=== PATIENT | male | born 2000 | race Two or more races ===

== ENCOUNTER 2022-12-13 17:09 | Emergency (ER) | payer OTHER ==
[2022-12-13] MEDS ORDERED: HYDROmorphone 1 MG/ML Syringe IVPUSH ONE (22:33)
[2022-12-13] MEDS ORDERED: Sodium Chloride 0.9% 10 ML Syringe FLUSH PRN (22:33)
[2022-12-13] MEDS ORDERED: cefTRIAXone 2 GM in Sodium Chloride 0.9% 100 ML IV STA (22:36)
[2022-12-13] MEDS ORDERED: Ketorolac 30 MG/ML SDV IVPUSH STA (22:42)
== END 2022-12-13 23:21 ==
LOC: JD.ED 17:09
DX: S61.231A Puncture wound without foreign body of left index finger without damage to nail, initial encounter (principal); F17.290 Nicotine dependence, other tobacco product, uncomplicated; E66.9 Obesity, unspecified; Z68.42 Body mass index [BMI] 45.0-49.9, adult; Z86.16 Personal history of COVID-19; W34.011A Accidental discharge of paintball gun, initial encounter; Y93.E9 Activity, other interior property and clothing maintenance
CPT/HCPCS: 73130; 96374; 99284; J0696; J1885; 99282

== ENCOUNTER 2022-12-25 12:32 | Emergency (ER) | payer OTHER | END 2022-12-25 15:10 | disposition home or self-care (01) | LOC: JD.ED 12:32 | DX: L08.9 Local infection of the skin and subcutaneous tissue, unspecified (principal); E66.9 Obesity, unspecified; Z68.41 Body mass index [BMI] 40.0-44.9, adult; Z86.16 Personal history of COVID-19 | CPT/HCPCS: 87070; 87075; 87205; 99283 ==